=== PATIENT | male | born 1980 | race Caucasian/White ===

== ENCOUNTER 2017-06-22 19:07 | Emergency (ER) | payer BC ==
[2017-06-22] MEDS ORDERED: KETOROLAC TROMETHAMINE 60 MG/2 ML VIAL IM ONE ×2 (19:25→19:27)
--- NOTE | 2017-06-22 20:12 | ERNOTE ---
Lower Extremity HPI - Narrative Date of Service: 06/22/17 - General Lower Extremities Pain: hip: left Time Seen by Provider: 06/22/17 20:06 Source: patient Exam Limitations: no limitations - Immun/Allergies/Home Medications Immunizations: IMMUNIZATION HX Immunizations Up to Date Yes History of Influenza Vaccine No Allergies/Adverse Reactions: Allergies Allergy/AdvReac Type Severity Reaction Status Date / Time No Known Allergies Allergy Verified 07/18/16 07:11 Home Medications: HOME MEDICATIONS Albuterol Sulfate [Proair Hfa] 2 puff IH QID PRN 06/22/17 [Last Taken Unknown] Escitalopram Oxalate [Lexapro] 10 mg PO DAILY 06/22/17 [Last Taken Unknown] Fluticasone/Salmeterol [Advair 250-50 Diskus] 1 puff IH BID 06/22/17 [Last Taken Unknown] Hydroxychloroquine Sulfate [Plaquenil] 200 mg PO DAILY 06/22/17 [Last Taken Unknown] Losartan Potassium [Cozaar] 25 mg PO DAILY 06/22/17 [Last Taken Unknown] Montelukast Sodium [Singulair] 10 mg PO DAILY 06/22/17 [Last Taken Unknown] oxyCODONE HCL [Oxycodone] 5 - 10 mg PO Q6H PRN #20 tab 06/22/17 [Last Taken Unknown] predniSONE [Prednisone] See Taper PO DAILY #10 tablet 06/22/17 [Last Taken Unknown] - Pain Score Pain Score #1 Pain Score: 7 - History of Present Illness Narrative: 37yo, M, presents to ER for L. hip pain. He does have hx of chronic hip pain, for which he sees Dr. Parnell. States Dr. Parnell suspects a Labral tear in his L. hip and ordered an MRI approx 1 week ago, but they are currently awaiting approval of MRI. Today, he coughed and developed increased pain to L. hip radiates down his LLE and around to the front of his thigh. Denies any loss of bowel or bladder or saddle anesthesia. He has noted some intermittent L. foot pain, denies at present. Last xray of L. hip 04/2017. Date (Duration): 06/22/17 Time (Timing): 10:00 Occurred: this morning Method of Injury: Reports: other - cough, denies any other injury Associated Symptoms: Reports: sensory loss - intermittent numbness to L. foot. Denies: snapping, popping sensation, headache, weakness, chest pain, vomiting/ diarrhea, bowel/bladder problems Review of Systems - Review of Systems Constitutional: Absent: fever, chills, malaise Cardiology: Absent: edema Gastrointestinal/Abdominal: Absent: nausea, vomiting Genitourinary: Absent: frequency, pain, dysuria, hematuria Musculoskeletal: Present: joint pain - L. hip, other - L. buttock pain. Absent : back pain, joint swelling Skin: Absent: rash, other - redness Neurological: Present: numbness - intermittently to L. foot - Patient's Past Medical History Patient History - Medical: Anxiety, Liver Disease, Rheumatoid Arthritis, Other Patient History - Cardiac/Respiratory: Bronchitis, COPD, Hypertension Patient History - Cancer: No Hx of Cancer Patient History - Surgical Procedures: Back Surgery, Other, Hernia Repair, Orthopedic Patient History - Other: None - Family History Mother Family History - Medical: No pertinent hx Family History - Cardiac/Respiratory: No pertinent hx Father Family History - Medical: , No pertinent hx Family History - Cardiac/Respiratory: No pertinent hx Grandfather-Maternal Family History - Medical: , No pertinent hx Family History - Cardiac/Respiratory: No pertinent hx - Social History Living Situations: spouse Abuse History: No History of abuse Psych History: Hx of Anxiety Smoking Status: Current every day smoker Have you smoked in the past 12 months: Yes Do you dip or chew tobacco: No Patient requests Smoking Cessation Consult: No Alcohol Use: heavy Drug Use: none - Immunizations Immunizations Up to Date: Yes History of Influenza Vaccine: No Physical Exam - Physical Exam General Appearance: Present: wd/wn, alert, other - appears to be uncomfortable with any movement Neck: Present: normal inspection, nontender Respiratory: Present: normal breath sounds, chest nontender, lungs clear. Absent: crackles, rhonchi, wheezing Cardiovascular/Chest: Present: regular rate, rhythm, no murmur Peripheral Pulses: N=norm/S=strong/W=weak/B=bound/A=absent: Dorsalis-pedis (R): Strong, Dorsalis-pedis (L): Strong Gastrointestinal/Abdominal: Present: normal bowel sounds, nontender, soft. Absent: mass Back Exam: Present: no CVA tenderness, other - tenderness along SI joint to L. side, tenderness along L. buttock region Extremity Exam: Present: normal inspection, normal range of motion - L. knee, but does report hip pain with L. knee ROM, L. ankle and L. foot ROM intact, no edema, other - pain with L. hip external rotation and flexion, pain with straight leg raise to L. Neurological Exam: Present: alert, oriented, other - weakness on extension LLE in comparison to RLE ED Progress - Vital Signs Patient's Vital Signs:: I have reviewed the patient's vital signs. Vital Signs: Vital Signs 06/22/17 06/22/17 19:09 19:17 Temperature 36.8 C 36.8 C Pulse Rate 90 90 Respiratory 18 18 Rate Blood Pressure 138/102 138/102 O2 Sat by Pulse 98 98 Oximetry - Progress/Reassessment Chief Complaint: Hip Pain/Injury Progress:: Improved Plan - Plan Plan: Symptoms appear to be a flare of his current hip injury, he is pending approval for MRI. After further discussion, he notes that [facility] did call him on 06/19/17 and were likely attempting to schedule. Reviewed his xrays results from 04/2017 on Ortho notes in [place]. As he did not have any acute trauma, I do not see any benefit in repeating the xray at this time. His pain is notably improved with pain medications in ER. Repeated Dilaudid dose prior to discharge, as he is still rating pain 5/10. Pharmacy is closed for the night, Oxycodone 5mg #2 tabs, to take if he awakes in pain tonight. If symptoms worsen he will return to ER here or at [facility]. Departure Clinical Impression: Hip pain, left Strain of left hip Qualifiers: Encounter type: subsequent encounter Qualified Code(s): S76.012D - Strain of muscle, fascia and tendon of left hip, subsequent encounter - Departure Disposition: Home self-care Condition: Fair Instructions: Hip Pain Additional Instructions: May use crutches if needed for pain Apply ice/heat as needed for pain Call your orthopedic tomorrow to schedule follow up and to discuss MRI scheduling Return to ER if symptoms worsen Prescriptions: oxyCODONE HCL [Oxycodone] 5 - 10 mg PO Q6H PRN #20 tab PRN Reason: Severe Pain predniSONE [Prednisone] See Taper PO DAILY #10 tablet
[2017-06-22] MEDS ORDERED: HYDROmorphone HCL 1 MG/ML DISP.SYRIN IM ONE ×3 (20:25→21:43)
[2017-06-22] MEDS ORDERED: predniSONE 20 MG TABLET PO ONE (20:32)
[2017-06-22] MEDS ORDERED: predniSONE 20 MG TABLET ONE (20:37)
[2017-06-22] MEDS ORDERED: HYDROmorphone HCL 1 MG/ML DISP.SYRIN ONE ×2 (20:37→21:39)
[2017-06-22] MEDS ORDERED: oxyCODONE HCL 5 MG TABLET ONE (22:01)
[2017-06-22] MEDS ORDERED: oxyCODONE HCL 5 MG TABLET PO ONE (22:03)
[2017-06-22 22:24] VITALS: BP 131/91
== END 2017-06-22 22:00 | disposition home or self-care (01) ==
LOC: ER 19:07
DX: M25.552 Pain in left hip (principal); S76.012D Strain of muscle, fascia and tendon of left hip, subsequent encounter; X58.XXXD Exposure to other specified factors, subsequent encounter; I10 Essential (primary) hypertension; M06.9 Rheumatoid arthritis, unspecified; F41.9 Anxiety disorder, unspecified

== ENCOUNTER 2017-06-23 10:57 | Emergency (ER) | payer BC ==
[2017-06-23 11:05] VITALS: BP 126/74
[2017-06-23] MEDS ORDERED: KETOROLAC TROMETHAMINE 60 MG/2 ML VIAL IM ONE ×2 (11:39→11:42)
--- NOTE | 2017-06-23 11:46 | ERNOTE ---
Back Pain ER HPI Date of Service: 06/23/17 Presenting Symptoms: hx chronic back pain - AND HIP Time Seen by Provider: 06/23/17 11:38 Source: patient Exam Limitations: no limitations Immunizations: IMMUNIZATION HX Immunizations Up to Date Yes History of Influenza Vaccine No Allergies/Adverse Reactions: Allergies No Known Allergies Allergy (Verified 06/23/17 11:05) Home Medications: HOME MEDICATIONS Albuterol Sulfate [Proair Hfa] 2 puff IH QID PRN 06/22/17 [Last Taken Unknown] Escitalopram Oxalate [Lexapro] 10 mg PO DAILY 06/22/17 [Last Taken Unknown] Fluticasone/Salmeterol [Advair 250-50 Diskus] 1 puff IH BID 06/22/17 [Last Taken Unknown] Hydroxychloroquine Sulfate [Plaquenil] 200 mg PO DAILY 06/22/17 [Last Taken Unknown] Losartan Potassium [Cozaar] 25 mg PO DAILY 06/22/17 [Last Taken Unknown] Montelukast Sodium [Singulair] 10 mg PO DAILY 06/22/17 [Last Taken Unknown] oxyCODONE HCL [Oxycodone] 5 - 10 mg PO Q6H PRN #20 tab 06/22/17 [Last Taken Unknown] predniSONE [Prednisone] See Taper PO DAILY #10 tablet 06/22/17 [Last Taken Unknown] Narrative: 37-year-old male presents to the emergency room for left hip pain. Patient was seen here last night for left hip pain and he has not filled his medications as prescribed. Patient states that the pain is the same and nothing has changed since last night he is just in pain. Patient states that he was unable to get his pain medications today. Timing: Reports: getting worse Quality/Severity: Reports: mild Location of pain: Reports: radiating to lf thigh/leg Activities at Onset: Reports: none Recent Injury?: Reports: no Review of Systems - Review of Systems Constitutional: Present: See HPI EYE: Present: no symptoms reported ENT: Present: no symptoms reported Respiratory: Present: no symptoms reported Cardiology: Present: no symptoms reported Gastrointestinal/Abdominal: Present: no symptoms reported Genitourinary: Present: no symptoms reported Musculoskeletal: Present: See HPI, joint pain Skin: Present: no symptoms reported Neurological: Present: no symptoms reported Endocrine: Present: no symptoms reported Hematologic/Lymphatic: Present: no symptoms reported Psych: Present: no symptoms reported - Patient's Past Medical History Patient History - Medical: Anxiety, Liver Disease, Rheumatoid Arthritis, Other Patient History - Cardiac/Respiratory: Bronchitis, COPD, Hypertension Patient History - Cancer: No Hx of Cancer Patient History - Surgical Procedures: Back Surgery, Other, Hernia Repair, Orthopedic Patient History - Other: None - Family History Mother Family History - Medical: No pertinent hx Family History - Cardiac/Respiratory: No pertinent hx Father Family History - Medical: , No pertinent hx Family History - Cardiac/Respiratory: No pertinent hx Grandfather-Maternal Family History - Medical: , No pertinent hx Family History - Cardiac/Respiratory: No pertinent hx - Social History Abuse History: No History of abuse Psych History: Hx of Anxiety Smoking Status: Current some day smoker Have you smoked in the past 12 months: Yes - Immunizations Immunizations Up to Date: Yes History of Influenza Vaccine: No Physical Exam - Physical Exam Narrative: Patient has pain WITH range of motion with left hip. Left leg extension does elicit pain. General Appearance: Present: wd/wn, alert, mild distress Head Exam: Present: normal inspection, no evidence of injury Eye Exam: Normal inspection: bilateral, PERRL: bilateral, EOMI: bilateral Ears, Nose, Throat: Present: normal ENT inspection Neck: Present: normal inspection, nontender, full range of motion Respiratory: Present: no respiratory distress, normal breath sounds, no accessory muscle use, chest nontender, lungs clear Cardiovascular/Chest: Present: regular rate, rhythm, no murmur, normal peripheral pulses Peripheral Pulses: N=norm/S=strong/W=weak/B=bound/A=absent: Dorsalis-pedis (R): Normal, Dorsalis-pedis (L): Normal Gastrointestinal/Abdominal: Present: normal bowel sounds, nontender, nondistended, soft, no organomegaly Back Exam: Present: normal inspection, decreased range of motion Extremity Exam: Present: normal except -, no edema, decreased range of motion - LEFT LEG EXTENSION, pelvis stable. 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 Patient is follow-up with his orthopedist for his left hip pain today. Patient is also to schedule his outpatient MRI today. Departure Clinical Impression: Hip pain, left Strain of left hip Qualifiers: Encounter type: subsequent encounter Qualified Code(s): S76.012D - Strain of muscle, fascia and tendon of left hip, subsequent encounter - Departure Disposition: Home Follow Up Needed Condition: Stable Instructions: Hip Pain Additional Instructions: PATIENT TO FOLLOW UP WITH PCP AND SCHEDULE HIS MRI. PATIENT IS TO [employer] HIS PAIN MEDICATIONS SOON POSSIBLE. Referrals: Anne Perez FNP [Primary Care Provider] -
== END 2017-06-23 11:50 | disposition home or self-care (01) ==
LOC: ER 10:57
DX: S76.012A Strain of muscle, fascia and tendon of left hip, initial encounter (principal); M25.552 Pain in left hip; F17.200 Nicotine dependence, unspecified, uncomplicated; J44.9 Chronic obstructive pulmonary disease, unspecified; F41.9 Anxiety disorder, unspecified; I10 Essential (primary) hypertension